=== PATIENT | female | born 1945 | race African-American/Black ===

== ENCOUNTER 2024-08-12 12:42 | Emergency (ER) | payer MEDICARE, OTHER ==
[~2024-08-12] VITALS: Ht 160 cm; Wt 95.0 kg
[~2024-08-12 12:42] MED LIST: ALBUTEROL; ASPI-1497 PO; ATRO2DRO LEFTEYE; BRIM15DR8 LEFTEYE; FURO40TA5 PO; GLIPIZIDE PO; ISOS30TA91 PO; LISI20TA31 PO; PILO15DR36 LEFTEYE; POTA-204 PO; SYMVASTATIN; [UNRECOGNIZED DRUG - CODE] LEFTEYE
[2024-08-12 12:43] VITALS: O2SAT 99
[2024-08-12 14:52] LABS: BASOPHILS % 0.4 % (0.0-2.0); EOSINOPHILS % 1.5 % (0.0-5.0); HEMATOCRIT. 33.6 % (36.0-48.0); HEMOGLOBIN. 10.4 g/dL (12.0-16.0); LYMPHOCYTES % 11.1 % (20.0-50.0); MEAN CORPUSCULAR HEMOGLOBIN 27.9 pg (28.0-32.0); MEAN CORPUSCULAR HGB CONC 31.1 g/dL (31.0-37.0); MEAN CORPUSCULAR VOLUME 89.8 fL (81.0-99.0); MEAN PLATELET VOLUME 10.7 fl (7.4-10.4); PLATELET 153 x1000/uL (130-400); RED BLOOD CELL COUNT 3.74 mill/uL (4.2-5.4); RED CELL DISTRIBUTION WIDTH 13.4 % (11.6-14.6); WHITE BLOOD COUNT 8.6 x1000/uL (4.5-11.0)
[2024-08-12 14:56] LABS: CHLORIDE 106 mEq/L (98-107); POTASSIUM 4.6 mEq/L (3.5-5.1); SODIUM 137 mEq/L (136-145)
[2024-08-12 14:57] LABS: CALCIUM 9.6 mg/dL (8.7-10.4); CARBON DIOXIDE 23 mEq/L (21-32)
[2024-08-12 15:02] LABS: CREATININE 1.7 mg/dL (0.6-1.0); GLUCOSE 117 mg/dL (70-105); UREA NITROGEN BLOOD 20 mg/dL (9-23)
[2024-08-12 15:03] LABS: TROPONIN I HIGH SENSITIVITY 25 ng/L (3.0-34)
[2024-08-12 15:04] LABS: ALANINE AMINOTRANSFERASE < 7 IU/L (10-49); ALBUMIN 3.7 g/dL (3.2-4.8); ASPARTATE AMINOTRANSFERASE 12 IU/L (<34); BILIRUBIN DIRECT 0.1 mg/dL (<=3.0); BILIRUBIN TOTAL 0.4 mg/dL (0.1-1.0); PROTEIN TOTAL 7.5 g/dL (6.0-8.3)
[2024-08-12 15:11] LABS: PROTHROMBIN TIME 11.1 sec (9.6-11.0)
[2024-08-12 17:20] VITALS: TEMP 36.6
[2024-08-12 19:15] LABS: CLARITY URINE TURBID (CLEAR); COLOR URINE YELLOW (YELLOW); GLUCOSE URINE NEGATIVE (NEGATIVE); KETONES URINE TRACE (NEGATIVE); LEUKOCYTE ESTERASE URINE 3+ (NEGATIVE); NITRITE URINE NEGATIVE (NEGATIVE); OCCULT BLOOD URINE 2+ (NEGATIVE); PH URINE 5.5 (4.5-8.0); PROTEIN URINE 2+ (NEGATIVE); SPECIFIC GRAVITY URINE 1.064 (1.005-1.030)
[2024-08-12 19:26] LABS: BACTERIA URINE 1+; SQUAMOUS EPITHELIAL CELL URINE 1+ /lpf (RARE/1+); WBC URINE TNTC /hpf (0-2)
[2024-08-12] MEDS ORDERED: CEPH500C2 MT (20:09)
[2024-08-12 21:12] VITALS: BP 134/88; PULSE 96; RESP 18; O2SAT 100
== END 2024-08-12 21:00 | disposition home or self-care (01) ==
LOC: ER 12:42
DX: N39.0 Urinary tract infection, site not specified (principal); R10.11 Right upper quadrant pain; J45.909 Unspecified asthma, uncomplicated; I11.0 Hypertensive heart disease with heart failure; I50.9 Heart failure, unspecified; E11.43 Type 2 diabetes mellitus with diabetic autonomic (poly)neuropathy; Z79.82 Long term (current) use of aspirin; Z79.899 Other long term (current) drug therapy
CPT/HCPCS: 99285; 74177; 80076; 80048; 81003; 83880; 83690; 85025; 85610; 87086; 84484; 36415; Q9967